=== PATIENT | female | born 1990 | race Caucasian/White ===

== ENCOUNTER → 2024-03-21 10:17 | Outpatient (REF) | payer BC, SELFPAY | LOC: WDC 10:17 | PROVIDERS: ATTENDING PHYSICIAN Nurse Practitioner Family; FAMILY PHYSICIAN Nurse Practitioner Family | DX: N64.4 Mastodynia (principal) | CPT/HCPCS: 76642; 77062; 77066 ==

== ENCOUNTER → 2024-12-13 10:06 | Outpatient (REF) | payer BC, SELFPAY | LOC: PNTC 10:06 | PROVIDERS: ATTENDING PHYSICIAN Obstetrics & Gynecology | DX: O36.8190 Decreased fetal movements, unspecified trimester, not applicable or unspecified (principal) | CPT/HCPCS: 59025; 76815 ==

== ENCOUNTER → 2025-01-07 14:47 | Outpatient (REF) | payer BC, SELFPAY | LOC: PNTC 14:47 | PROVIDERS: ATTENDING PHYSICIAN Obstetrics & Gynecology | DX: O36.8190 Decreased fetal movements, unspecified trimester, not applicable or unspecified (principal) | CPT/HCPCS: 59025; 76815 ==

== ENCOUNTER 2025-02-07 05:59 | Inpatient (IN) | payer BC, SELFPAY ==
[2025-02-07 06:26] VITALS: BP 128/79; BMI 33.6
[2025-02-07 06:45] LABS: Hematocrit 36.4 % (37.0-47.0); Hemoglobin 12.5 g/dL (12.0-16.0); Mean Corp Hgb Conc. 34.3 g/dL (33.0-37.0); Mean Corpuscular Volume 94.5 fL (81.0-99.0); Platelet Count 219 10^3/uL (130-400); Red Cell Dist. Width 12.8 % (11.5-14.5)
[2025-02-07] MEDS: TYLENOL 975 MG PO (07:00)
[2025-02-07] MEDS: ANCEF 10 IV (07:00)
[2025-02-07] MEDS: BICITRA 30 ML PO (07:01)
[2025-02-07] MEDS: LR 1000 IV (07:48)
[2025-02-07] MEDS: PITOCIN 30 UNITS/NSS 500 ML IV (10:15)
[2025-02-07] MEDS: MORPHINE SULFATE 2 MG IV (12:12)
[2025-02-07] MEDS: TORADOL 15 MG IV ×2 (13:45→20:09)
[2025-02-07] MEDS: COLACE 100 MG PO (20:09)
[2025-02-08] MEDS: TORADOL 15 MG IV ×2 (01:45→08:10)
[2025-02-08 05:09] LABS: Hematocrit 29.8 % (37.0-47.0); Hemoglobin 9.9 g/dL (12.0-16.0); Mean Corp Hgb Conc. 33.2 g/dL (33.0-37.0); Mean Corpuscular Volume 98.0 fL (81.0-99.0); Platelet Count 190 10^3/uL (130-400); Red Cell Dist. Width 13.1 % (11.5-14.5)
--- NOTE | 2025-02-08 08:01 | W.PN.ANS.POP ---
Anesthesia Post Operative
- Anesthesia Post Op Note
Vital Signs Stable-See Nursing Note: Yes
Airway Patent: Yes
Adequate Pain Control: Yes
Change in Mental Status: No
Current Postoperative Nausea & Vomiting: No
Anesthesia Complications: No
General Anesthetic Recall: No
Unplanned Admission: No
Post Op Hydration Adequate: Yes
- -
Pt awake and alert, resting comfortably with no anesthesia realted c/o at time of post op visit.
[2025-02-08] MEDS: COLACE 100 MG PO ×2 (08:10→19:34)
[2025-02-08] MEDS: PRENATAL PLUS 1 TABLET PO (08:10)
[2025-02-08] MEDS: TYLENOL 650 MG PO ×3 (11:42→20:27)
[2025-02-08 11:43] LABS: Syphilis/T. pallidum Ab Reflex Negative (Negative)
[2025-02-08] MEDS: FEOSOL 325 MG PO (11:43)
[2025-02-08] MEDS: MOTRIN 600 MG PO ×2 (14:30→19:35)
[2025-02-09] MEDS: MOTRIN 600 MG PO ×2 (02:31→08:25)
[2025-02-09] MEDS: TYLENOL 650 MG PO ×2 (02:32→08:25)
[2025-02-09] MEDS: COLACE 100 MG PO (07:50)
[2025-02-09] MEDS: FEOSOL 325 MG PO (07:51)
[2025-02-09] MEDS: PRENATAL PLUS 1 TABLET PO (07:51)
--- NOTE | 2025-02-09 08:39 | W.DS.TRANS ---
DC Summary - Legal File Clerk
-
Discharge Instructions:
Discharge Diagnosis/Procedures 38.6 wks, prior csection, labor,
declined TOLAC. Repeat LTCS, anemia
Diet Regular
Activity No strenuous activity
Driving Restrictions No driving for 2 weeks
Bathing Restrictions OK to Shower
Instructions:
Stand-Alone Forms: LDRP Delivery
Changes to Home Medications: No
Discharge Medications:
DC Medications w/original date entered in [facility]
vitamin-ferrous fumarate 28 mg iron-folic acid 800 mcg tablet ( Tablet) 1 tab PO DAILY Supplement 11/02/21
acetaminophen 325 mg tablet 650 mg (2 x 325 mg) PO Q4HPRN PRN mild pain #0 tabs 02/09/25
ferrous sulfate 325 mg (65 mg iron) tablet (FeroSul) 325 mg PO DAILY #0 tabs 02/09/25
ibuprofen 600 mg tablet 600 mg PO Q6HPRN PRN cramps #0 tabs 02/09/25
sennosides 8.6 mg tablet (Shirley-gregoria) 17.2 mg (2 x 8.6 mg) PO HSPRN PRN constipation #0 tabs 02/09/25
Home Medication Changes
Pending Results: No
Total time spent discharging patient (in min): 20
== END 2025-02-09 12:31 | disposition home or self-care (01) | DRG 788 ==
LOC: LDRP 05:59
PROVIDERS: Obstetrics & Gynecology; ADMITTING PHYSICIAN Obstetrics & Gynecology
PROC: 10D00Z1 Extraction of Products of Conception, Low, Open Approach (ICD-10-PCS; 2025-02-07)
DX: O34.211 Maternal care for low transverse scar from previous cesarean delivery (principal); Z3A.38 38 weeks gestation of pregnancy; Z37.0 Single live birth
CPT/HCPCS: 36415; 85027; 86780; 86850; 86900; 86901

== ENCOUNTER 2025-03-05 12:51 | Emergency (ER) | payer BC, SELFPAY ==
[2025-03-05 12:57] VITALS: BP 152/80
--- NOTE | 2025-03-05 13:27 | ED.GENMED ---
Addendum entered and electronically signed by Delmis Snow PA-C 03/08/25 07:29:
Wound culture grew out E. coli and Enterococcus. Sensitive to Augmentin which the patient is on so there is no treatment change
Original Note:
History of Present Illness
General
Chief Complaint: Post Operative Problem(s)
Source: patient
Exam Limitations: none
Time Seen by Provider: 03/05/25 13:13
Nursing documentation reviewed up to this point in time: agreed with
History of Present Illness
History of Present Illness:
34-year-old female presents to the ER for evaluation. Patient February 07. She has been on antibiotics for an incisional site at that site of the . She saw on 5 days ago and was placed on clindamycin but had allergic
reaction and started Augmentin Tuesday. She did have a fever last week of 102.[address] [facility] at that time. At that time her white count was very minimally elevated. notes that her incision site seems to be looking worse and
has a foul smell which what prompted them to come to the ER. She denies any pain/fevers.
Past History
Past History
ED Past Medical History: None
ED Past Surgical History: None
Social History
Tobacco: Non-smoker
Alcohol: None
Drug: None
Personal: Single
Living: with family
Phy Exam
General Physical Exam
General Presentation: no apparent distress
General age: appears stated age
General Skin: warm and dry
General Habitus: normal
General Mental: alert
General Hydration: appears well hydrated
Gastrointestinal Exam
Gastrointestinal Exam: soft and other (c section incision with very minimal redness small minimal areas of wound dehiscence however no obvious drainage no induration or palpable abscess.)
Neurological Exam
Neurological Exam: alert and oriented x3
Musculoskeletal Exam
Musculoskeletal Exam: full ROM
Skin Exam
Skin Exam: normal color and warm/dry
Psychiatric Exam
Psychiatric Exam: normal mood/affect
Course
Orders/Labs/Results
Orders:
Orders
03/05/25 13:27
IV Insert/Care/Rem.- Treatment PRN
03/05/25 13:55
Complete Blood Count/With Diff Urgent
Comprehensive Metabolic Panel Urgent
03/05/25 15:33
Wound Culture [Wound/Abscess/Other Culture] Routine
ARUN Source: Abdomen
Specimen Description:
Date Specimen was Collected: 03/05/25
Time Specimen was Collected: 15:29
Abnormal Lab Results
03/05/25
13:55
RBC 3.89 L 10^6/uL
(4.20-5.40)
Hgb 11.7 L g/dL
(12.0-16.0)
Hct 35.4 L %
(37.0-47.0)
Plt Count 401 H 10^3/uL
(130-400)
Abs Immat Gran (auto) 0.1 H 10^3/uL
(0-0.05)
Absolute Neuts (auto) 7.7 H 10^3/uL
(1.4-6.5)
Lymphocytes % 17.0 L %
(20.5-51.1)
Glucose 114 H mg/dl
(70-99)
03/05/25 13:55
03/05/25 13:55
Vital Signs
Initial and Last Documented VS:
Initial Vital Signs
Temp Pulse Resp BP Pulse Ox
98.4 F 101 16 152/80 100
03/05/25 12:57 03/05/25 12:57 03/05/25 12:57 03/05/25 12:57 03/05/25 12:57
Last Documented Vital Signs
Temp Pulse Resp BP Pulse Ox
98.4 F 69 16 120/77 99
03/05/25 12:57 03/05/25 14:00 03/05/25 14:00 03/05/25 14:00 03/05/25 14:00
MDM/Problems Addressed
Differential Diagnosis Includes:
not limited to: skin infection post operative complication, less likely abscess
MDM/Problems Addressed:
As documented patient is a 34-year-old female status post February 07 who has been treated for infection on antibiotics presents to the ER for evaluation. was concerned that incision looked worse. Patient is being
followed by Dr. Shields. Patient denies any present fevers she has a normal white count she is afebrile labs are unremarkable. Case discussed with SENIOR WIND TURBINE TECHNICIAN, Dr. Shields who evaluated patient bedside, she does feel that wound is healing and is
improved from her last evaluation of patient. She did however increase Augmentin and send wound culture. Return precautions given.
*Pulse Oximetry
SaO2: 100
Oxygen Mode of Delivery: Room air
Patient hypoxic: no
*Critical Care Note
Total Time (30-74mins, 75-104mins- exclusive of procedures): Not Applicable
Patient Management
Discussion with other providers: Mobile Phone Salesperson ( LEGAL CONTRACTS SPECIALIST Dr Shields )
ED Attending Note
-
Portions of this chart may have been created with voice recognition software.� Occasional wrong word or��sound alike� substitutions may have occurred due to the inherent limitations of voice recognition software.
Discharge Plan
Departure
Patient Disposition: Home (Routine Discharge)
Date of Disposition: 03/05/25
Time of Disposition: 15:38
Patient with high blood pressure during this ER visit?: Yes
Condition: Fair
Covid-19: Not Applicable
Discharge Problem:
Post-operative complication
Prescriptions:
No Action
vit-iron fum-folic ac [ Tablet] 28 mg iron- 800 mcg Tablet
1 tab PO DAILY
ferrous sulfate [FeroSul] 325 mg (65 mg iron) Tablet
325 mg PO DAILY Qty: 0 0RF
sennosides [Shirley-gregoria] 8.6 mg Tablet
17.2 mg PO HSPRN PRN (Reason: constipation) Qty: 0 0RF
ibuprofen 600 mg Tablet
600 mg PO Q6HPRN PRN (Reason: cramps) Qty: 0 0RF
acetaminophen 325 mg Tablet
650 mg PO Q4HPRN PRN (Reason: mild pain) Qty: 0 0RF
Referrals:
Buffy Shields MD [Active, Gynecology]
Kisha Humphreys CRNP [Family Provider, Family Practice]
Activity Restrictions/Additional Instructions:
As discussed please follow-up with LEGAL CONTRACTS SPECIALIST as recommended. A new dose of your antibiotic was sent to your pharmac.y take as directed. return if any worsening of symptoms.
Interventions
Interventions:
*Risk Screen - Suicide Last Done: 03/05/25 12:57
*General Assessment Last Done: 03/05/25 12:57
*Neglect/Abuse Screening Last Done: 03/05/25 14:00
*ED- Fall Risk Assessment Last Done: 03/05/25 14:00
*ED COVID-19 Vaccine History Last Done: 03/05/25 14:00
*ED Influenza Vaccine History Last Done: 03/05/25 14:00
*Nursing Disposition Last Done: 03/05/25 15:52
ED-Skin Assessment Last Done: 03/05/25 14:00
Discharge Date and Time
Discharge Date/Time: 03/05/25 15:54
Print Language: ECUADOREAN
[2025-03-05 14:00] VITALS: BP 120/77
[2025-03-05 14:09] LABS: Hematocrit 35.4 % (37.0-47.0); Hemoglobin 11.7 g/dL (12.0-16.0); Mean Corp Hgb Conc. 33.1 g/dL (33.0-37.0); Mean Corpuscular Volume 91.0 fL (81.0-99.0); Nucleated Red Blood Cells % 0 %; Platelet Count 401 10^3/uL (130-400); Red Cell Dist. Width 12.1 % (11.5-14.5)
[2025-03-05 14:26] LABS: ALT (SGPT) 18 U/L (0-35); AST (SGOT) 20 U/L (14-36); Albumin 4.3 g/dl (3.5-5.0); Alkaline Phosphatase 86 U/L (38-126); Blood Urea Nitrogen 10 mg/dl (7-17); Calcium 9.2 mg/dl (8.4-10.2); Carbon Dioxide 27 mmol/L (22-30); Chloride 105 mmol/L (98-107); Glucose 114 mg/dl (70-99); Potassium 4.5 mmol/L (3.5-5.1); Sodium 138 mmol/L (135-145); Total Protein 7.3 g/dl (6.3-8.2); eGFR > 60.00
--- NOTE | 2025-03-06 03:21 | CON.MD ---
Consultation - Medical
-
34yo sP R-LTCS on 02/07 presents to the ER due to concerns about worsening wound infection. She was diagnosed with a wound infection/superficial wound separation in the office 5 days ago. There was no concern for abscess at the time. there was
no drainage from the incision, cultures were not collected. The patient was then placed prophylactically on Clindamycin. She states however that she had a reaction to this medication-hives and was switched to Augmentin 500/125mg. She has been on
this for 3 days and her felt the incision looked worse so brought her in. She still notices a slight odor and feels there is always moisture around the incision. She denies fever at home. Some discomfort at the incision but nothing severe.
She denies n/v. continues to breastfeed.
PMHx:Depression
PSHX: C/S x2
POBHx: 01/2025- R-LTCS, 11/2021: 1-C/S arrest of descent
FHx: Mom- Lung CA, MGF- Prostate
CA
SHx: Neg x3
Meds: Augmentn
All: Clindamycin
Vitals/Labs: See Below
Gen: nad well appearing
Abd: soft, non tender, no r/g
Incision: Toward the center of the incision there are 2 small areas where the skin edges are not well approximated, slight wound separation, The tissue visible is pink and healthy appearing. No exudate, some bleeding elicited when probed, but unable
to breakthrough to the deeper subQ layer. no drainage expressed or collection palpable. The skin above and below the incision is this area appears irritated- dry and scaly with patches of erythema.
A/P: 34yo almost 4weeks s/p R-C/S with Wound infection/superficial separation
-No leukocytosis, afebrile and VSS
-Overall her incision appears improved from her exam in the office. I think they are mostly concerned about the wound separation. Advised this does not need to be sewn back together but rather will close by secondary intention so will take longer to
close. Reassured them it looks better than before. But from the infection standpoint she is doing okay. Advised we can increase her dose of Augmentin to 875/125mg. Reviewed s/sx of worsening infection.
-The erythema in the skin above and below the incision seems to be more skin dryness and irritation. She denies feeling itchy. She is wondering if she can use a topical antibacterial cream. I am fine with this
-wound culture collected today, though there was really no drainage expressed. We will f/u with results.
-Patient has wound check appt in the office next week. ok for d/c home now.
Consultation
-
Date/Time Consultation Performed: 03/05/25 1500
Requesting Provider: Beto
Performing Provider: Miranda
Reason for Consultation: Post-op Wound Infection
Vital Signs / Labs
-
Vital Signs and Labs:
Temp Pulse Resp BP Pulse Ox
98.4 F 69 16 120/77 99
03/05/25 12:57 03/05/25 14:00 03/05/25 14:00 03/05/25 14:00 03/05/25 14:00
03/05/25 13:55
03/05/25 13:55
03/05/25
13:55
RBC 3.89 L
Hgb 11.7 L
Hct 35.4 L
Plt Count 401 H
Abs Immat Gran (auto) 0.1 H
Absolute Neuts (auto) 7.7 H
Lymphocytes % 17.0 L
Glucose 114 H
== END 2025-03-05 15:54 | disposition home or self-care (01) ==
LOC: EMR 12:51
PROVIDERS: Nurse Practitioner; EMERGENCY PHYSICIAN Emergency Medicine; FAMILY PHYSICIAN Nurse Practitioner Family
DX: O86.01 Infection of obstetric surgical wound, superficial incisional site (principal); B96.29 Other Escherichia coli [E. coli] as the cause of diseases classified elsewhere; B95.2 Enterococcus as the cause of diseases classified elsewhere; B96.5 Pseudomonas (aeruginosa) (mallei) (pseudomallei) as the cause of diseases classified elsewhere; Z16.29 Resistance to other single specified antibiotic; R03.0 Elevated blood-pressure reading, without diagnosis of hypertension; Z88.1 Allergy status to other antibiotic agents
CPT/HCPCS: 99283; 80053; 85025; 87070; 87077; 87186; 87205